=== PATIENT | female | born 1965 | race Caucasian/White ===

== ENCOUNTER 2022-10-08 10:34 | Emergency (ER) | payer BC, SELFPAY ==
[2022-10-08 10:41] VITALS: BP 117/76; PULSE 76; RESP 16; TEMP 37.3; O2SAT 98
[2022-10-08 10:48] LABS: Appearance Urine Clear (Clear); Bilirubin Urine Negative (Negative); Blood Urine 3+ (Negative); Color Urine Yellow (Yellow); Glucose Urine Negative (Negative); Ketones Urine Negative (Negative); Leukocyte Esterase Urine 1+ (Negative); Nitrite Urine Negative (Negative); Protein Urine 1+ (Negative); Urobilinogen Urine 0.2 (0.2-1.0); pH Urine 5.5 (5.0-8.5)
[2022-10-08 11:06] LABS: Bacteria Urine Few; RBC Urine >100 (0-2); WBC Urine >100 (0-5)
--- NOTE | 2022-10-08 11:27 | ED_ITS ---
HPI - General Adult General Chief complaint: Urogenital Problems, Female Stated complaint: UTI Time Seen by Provider: 10/08/22 11:22 Source: patient Mode of arrival: ambulatory Limitations: no limitations History of Present Illness HPI narrative: 57-year-old female coming in today complaining of increased urinary frequency, urgency and dysuria. She denies any fevers, chills, nausea or vomiting. States that she does have recurrent UTIs and is on chronic Bactrim after sexual activity. Has not had a UTI in quite some time. Generally [employer] works for her and she is requesting that today. Has no other concerns. Related Data Home Medications Medication Instructions Recorded Confirmed aspirin 81 mg tablet,delayed 81 mg PO DAILY 10/08/22 10/08/22 release (Adult Aspirin Regimen) nebivolol 2.5 mg tablet mg 10/08/22 pravastatin 20 mg tablet mg 10/08/22 rosuvastatin 5 mg tablet mg 10/08/22 venlafaxine 150 mg mg PO 10/08/22 capsule,extended release 24 hr Previous Rx's Medication Instructions Recorded sulfamethoxazole 800 1 tab PO BID 7 days #14 tabs 10/08/22 mg-trimethoprim 160 mg tablet (Bactrim DS) Allergies Allergy/AdvReac Type Severity Reaction Status Date / Time eggs Allergy Uncoded 10/08/22 10:44 Review of Systems Status of ROS: Reports: 10 or more systems reviewed and unremarkable except as noted in History and below [facility] Social History Smoking Status: Never smoker Do you use any of these nicotine containing products: None How often do you have a drink containing alcohol: monthly or less How often do you have six or more drinks on one occasion: Never AUDIT-C Alcohol total score: 1 Non-prescribed substance use: denies use Exam Narrative: Exam Narrative: Well-nourished well-developed patient in no acute distress. Alert and oriented. Answers questions appropriately. Mood and affect are appropriate. Thoughts are goal oriented and rational. No tangential or magical thinking noted. Patient speaks in full sentences without needing to catch Her breath. HEENT: Normocephalic atraumatic. Pupils are equally round reactive to light. Extraocular muscles are intact. Conjunctivae are moist without any icterus noted. Cardiovascular: Heart is regular rate and rhythm S1 and S2 are present without any murmurs. Lungs: Clear to auscultation bilaterally no wheezes rhonchi or rales are appreciated. Abdomen: Soft and nontender nondistended with normal bowel sounds. Const: Vital Signs, click to edit/add: Vital Signs - 24 hr 10/08/22 10:41 Temperature 99.2 F Pulse Rate [Left P ulse Oximeter] 76 Respiratory Rate 16 Blood Pressure [Le ft Upper Arm] 117/76 Pulse Oximetry 98 Course Course Hospital Course: UA grossly positive for signs of infection. Vital Signs Vital signs: Initial Vital Signs Temperature 99.2 F 10/08/22 10:41 Temperature Source Temporal Artery Scan 10/08/22 10:41 Pulse Rate 76 10/08/22 10:41 Respiratory Rate 16 10/08/22 10:41 Blood Pressure 117/76 10/08/22 10:41 Blood Pressure Mean 89 10/08/22 10:41 Blood Pressure Position Sitting 10/08/22 10:41 Pulse Oximetry 98 10/08/22 10:41 Vital Signs Temperature 99.2 F 10/08/22 10:41 Pulse Rate 76 10/08/22 10:41 Respiratory Rate 16 10/08/22 10:41 Blood Pressure 117/76 10/08/22 10:41 Pulse Oximetry 98 10/08/22 10:41 Temperature 99.2 F 10/08/22 10:41 Pulse Rate 76 10/08/22 10:41 Respiratory Rate 16 10/08/22 10:41 Blood Pressure 117/76 10/08/22 10:41 Pulse Oximetry 98 10/08/22 10:41 Medical Decision Making MDM Narrative Medical decision making narrative: 57-year-old female with UTI. Will treat with Bactrim b.i.d. for 7 days, this is her usual treatment. Recommend follow-up UA in about 10 days with her [facility] care provider to make sure that hematuria has resolved. Lab Data Lab results reviewed: Yes I reviewed the patient's lab results Labs: Lab Results 10/08/22 Range/Units 10:41 Urine Color Yellow (Yellow) Urine Appearance Clear (Clear) Urine pH 5.5 (5.0-8.5) Ur Specific [place] 1.020 (1.000-1.030) Urine Protein 1+ A (Negative) Urine Glucose (UA) Negative (Negative) Urine Ketones Negative (Negative) Urine Blood 3+ A (Negative) Urine Nitrite Negative (Negative) Urine Bilirubin Negative (Negative) Urine Urobilinogen 0.2 (0.2-1.0) Ur Leukocyte Esterase 1+ A (Negative) Urine RBC >100 A (0-2) Urine WBC >100 A (0-5) Ur Squamous Epith Cells None (None-Few) Urine Bacteria Few A (None) Discharge Plan Discharge Clinical Impression: Urinary tract infection Patient Disposition: Home, Self-Care Condition: Stable Additional Instructions: Take all antibiotics as prescribed. Follow-up with your primary care provider in 10-14 days for repeat urine test to make sure that blood has cleared up. Prescriptions: New sulfamethoxazole-trimethoprim [Bactrim DS] 800-160 mg tablet 1 tab PO BID 7 Days Qty: 14 0RF No Action venlafaxine 150 mg capsule,extended release 24hr PO Label Comments: TAKE 1 CAPSULE BY MOUTH EVERY DAY WITH FOOD FOR 90 DAYS pravastatin 20 mg tablet Label Comments: TAKE 1 TABLET BY MOUTH EVERY DAY AT BEDTIME FOR 90 DAYS rosuvastatin 5 mg tablet Label Comments: TAKE 1 TABLET BY MOUTH EVERY DAY FOR 30 DAYS nebivolol 2.5 mg tablet Label Comments: TAKE 1 TABLET BY MOUTH EVERY DAY FOR 90 DAYS aspirin [Adult Aspirin Regimen] 81 mg tablet,delayed release (DR/EC) 81 mg PO DAILY Follow Up/Referrals: Provider,Not a Local [Primary Care Provider] - Stand Alone Forms: [employer] Info Instructions
== END 2022-10-08 11:58 | disposition home or self-care (01) ==
LOC: ED 11:44
PROVIDERS: Emergency Provider Family Medicine
DX: N39.0 Urinary tract infection, site not specified (principal)
CPT/HCPCS: 81001; 87086; 87186; 99283; 99284